=== PATIENT | male | born 1965 | race Caucasian/White ===

== ENCOUNTER 2017-07-28 23:36 | Emergency (ER) | payer MEDICARE ==
--- NOTE | 2017-07-29 00:05 | ED Physician Documentation ---
PD HPI CHEST PAIN - Stated complaint Stated Complaint: CP/NAUSEA - Chief complaint Chief Complaint: Cardiac - History obtained from History obtained from: Patient, Family - History of Present Illness Timing - onset: How many hours ago (12) Timing - onset during: Rest Timing - duration: Hours (12) Timing - details: Gradual onset Pain level max: 8 Pain level now: 8 Quality: Pressure, Aching, Dull, Pain Location: Epigastric Radiation: Other (chest) Improved by: Nothing Worsened by: Eating Associated symptoms: No: Shortness of air, Diaphoresis, Nausea, Vomiting, Feeling faint / dizzy, General Weakness, Palpitations, Cough Similar symptoms before: Has not had sx before Recently seen: Not recently seen - Additional information Additional information: Patient states he has had constant abdominal pain for the last 12 hours, worse after eating tonight. Review of Systems Ten Systems: 10 systems reviewed and negative Constitutional: denies: Fever, Chills Ears: denies: Ear pain Nose: denies: Rhinorrhea / runny nose, Congestion Throat: denies: Sore throat Respiratory: denies: Cough GI: reports: Nausea. denies: Vomiting Skin: denies: Rash Musculoskeletal: denies: Neck pain, Back pain PD PAST MEDICAL HISTORY - Past Medical History Past Medical History: Yes Musculoskeletal: Chronic back pain - Past Surgical History Past Surgical History: No - Present Medications Home Medications: Ambulatory Orders Medication Instructions Recorded Confirmed HYDROcod/ACETAM 5/325 [[place] 5/325] 1 tab PO Q6HR PRN 07/29/17 07/29/17 Oxycodone HCl/Acetaminophen 1 - 2 each PO Q6H PRN #10 tablet 07/29/17 [Percocet 5-325 mg Tablet] - Allergies Allergies/Adverse Reactions: Allergies Allergy/AdvReac Type Severity Reaction Status Date / Time No Known Drug Allergies Allergy Verified 07/29/17 00:38 - Living Situation Living Situation: reports: With family Living Arrangement: reports: At home - Social History Does the pt smoke?: No Does the pt have substance abuse?: No PD ED PE NORMAL - Vitals Vital signs reviewed: Yes - General General: Alert and oriented X 3, No acute distress, Well developed/nourished - HEENT HEENT: PERRL, Moist mucous membranes - Neck Neck: Supple, no meningeal sign - Cardiac Cardiac: RRR, Strong equal pulses - Respiratory Respiratory: No respiratory distress, Clear bilaterally - Abdomen Abdomen: Soft, Non distended, Other (TTP epigastric without peritoneal signs.) - Back Back: No CVA TTP, No spinal TTP - Derm Derm: Warm and dry - Extremities Extremities: No edema, No calf tenderness / cord - Neuro Neuro: Alert and oriented X 3 - Psych Psych: Normal mood, Normal affect Results - Vitals Vitals: Vital Signs - 24 hr 07/28/17 07/29/17 07/29/17 23:40 00:41 01:48 Temperature 36.3 C L 36.5 C 36.9 C Heart Rate 74 79 122 H Respiratory 18 15 18 Rate Blood Pressure 129/74 147/87 H 109/89 H O2 Saturation 100 100 97 07/29/17 03:11 Temperature Heart Rate 123 H Respiratory 19 Rate Blood Pressure 121/44 L O2 Saturation 97 Oxygen O2 Source Room air - EKG (time done) 2352 Rate: Rate (enter#) (77) Rhythm: NSR [place]: Normal Intervals: Normal IA QRS: Normal Ischemia: Normal ST segments 0331 Rate: Rate (enter#) (120) Rhythm: Sinus tachycardia [place]: Normal Intervals: Normal IA QRS: Normal Ischemia: Normal ST segments - Labs Labs: Laboratory Tests 07/29/17 07/29/17 07/29/17 00:33 00:33 00:33 WBC 17.5 H RBC 4.86 Hgb 14.7 Hct 44.3 MCV 91.2 MCH 30.3 MCHC 33.3 RDW 13.3 Plt Count 299 MPV 7.0 L Neut # 15.4 H Lymph # 1.6 [place] # 0.4 Eos # 0.0 Baso # 0.1 Absolute Nucleated RBC 0.00 Nucleated RBCs 0.0 Sodium 140 Potassium 4.3 Chloride 99 L Carbon Dioxide 25 Anion Gap 16.0 H BUN 9 Creatinine 1.0 Estimated GFR (MDRD) 79 L Glucose 143 H Calcium 9.9 Total Bilirubin 0.6 AST 35 ALT 32 Alkaline Phosphatase 84 Troponin I < 0.04 Total Protein 8.7 H Albumin 4.7 Globulin 4.0 Albumin/Globulin Ratio 1.2 Lipase 21 L - Rads (name of study) RUQ US Radiology: Prelim report reviewed, EMP read contemporaneously, See rad report ( No cholelithiasis, cholecystitis, or biliary dilation. At least moderate hepatic steatosis. Mild hepatomegaly. ) CT abd/pelvis Radiology: Prelim report reviewed, EMP read contemporaneously, See rad report ( No acute abdominal or pelvic abnormality. ) PD MEDICAL DECISION MAKING - ED course Complexity details: reviewed results, re-evaluated patient, considered differential, d/w patient, d/w family ED course: Patient is a 51-year-old male who presents to the emergency department with epigastric abdominal pain for approximately 12 hours.No acute findings on ultrasound or CT scan to explain his symptoms. He did develop tachycardia in the emergency department that coincided with the administration of IV Phenergan. No evidence of aortic dissection or pulmonary embolus clinically. Patient is very well-appearing, nontoxic. Afebrile. No evidence of acute coronary syndrome. Patient and family counseled regarding signs and symptoms for which I believe and urgent re-evaluation would be necessary. Patient with good understanding of and agreement to plan and is comfortable going home at this time We did discuss a repeat d-dimer and troponin, but given his length of symptoms and the tachycardia that coincided with the administration of IV Phenergan, will hold this at this time. They will recheck his pulse rate in 6-8 hours to make sure it has returned to normal. He has currently no pain and feels normal. Departure - Departure Disposition: 01 Home, Self Care Clinical Impression: Tachycardia Abdominal pain Qualifiers: Abdominal location: epigastric Qualified Code(s): R10.13 - Epigastric pain Condition: Good Instructions: ED Abdominal Pain Unkn Cause Follow-Up: Steve William MD [Primary Care Provider] - Within 3 Days Prescriptions: Oxycodone HCl/Acetaminophen [Percocet 5-325 mg Tablet] 1 - 2 each PO Q6H PRN # 10 tablet PRN Reason: pain Comments: The cause of your symptoms is unclear tonight. Return if you worsen. Your heart rate should return to normal as the phenergan wears off in 6-8 hours. If it remains elevated, return for evaluation. Do not drink alcohol or drive while on narcotic pain medicine. Note that many narcotic pain relievers also contain tylenol/acetaminophen. Please ensure that your total dose of acetaminophen from all sources does not exceed 3 grams (3000mg) per day. You may constipated on this medication, take a stool softener such as "Colace" twice a day while you are on it. Also recommend a [id number]-gih-scmmdhg laxative such as senna or MiraLAX any day that you do not have a bowel movement. If you received narcotic pain medication in the emergency department, do not drive or operate machinery for the next 24 hours.
[2017-07-29] MEDS ORDERED: LIDOCAINE VISCOUS 2% 15 ML UDC MM STA (00:33)
[2017-07-29] MEDS ORDERED: SUCRALFATE 1 GM/10 ML UDC PO STA (00:33)
[2017-07-29] MEDS ORDERED: MAG HYDROX/AL HYDROX/SIMETH 30 ML UDC PO STA (00:33)
[2017-07-29] MEDS ORDERED: FAMOTIDINE 20 MG TABLET PO STA (00:33)
[2017-07-29] MEDS ORDERED: SUCRALFATE 1 GM/10 ML UDC ONE (00:40)
[2017-07-29] MEDS ORDERED: MAG HYDROX/AL HYDROX/SIMETH 30 ML UDC ONE (00:40)
[2017-07-29] MEDS ORDERED: ONDANSETRON ODT 4 MG TABLET ONE (00:40)
[2017-07-29] MEDS ORDERED: LIDOCAINE VISCOUS 2% 15 ML UDC MM ONE (00:40)
[2017-07-29] MEDS ORDERED: FAMOTIDINE 20 MG TABLET ONE (00:40)
[2017-07-29 00:43] LABS: BASOPHILS # (AUTO) 0.1 10^3/uL (0.0-0.1); BASOPHILS % (AUTO) 0.7 %; HCT - HEMATOCRIT 44.3 % (42.0-52.0); HGB - HEMOGLOBIN 14.7 g/dL (14.0-18.0); LYMPHOCYTES # (AUTO) 1.6 10^3/uL (1.5-3.5); LYMPHOCYTES % (AUTO) 9.2 %; MEAN CORPUSCULAR HEMOGLOBIN 30.3 pg (27.0-31.0); MEAN CORPUSCULAR HGB CONC 33.3 g/dL (32.0-36.0); MEAN CORPUSCULAR VOLUME 91.2 fL (80.0-94.0); MONOCYTES # (AUTO) 0.4 10^3/uL (0.0-1.0); MONOCYTES % (AUTO) 2.2 %; NEUTROPHILS # (AUTO) 15.4 10^3/uL (1.5-6.6); NEUTROPHILS % (AUTO) 87.9 %; RED BLOOD COUNT 4.86 10^6/uL (4.70-6.10); RED CELL DISTRIBUTION WIDTH 13.3 % (12.0-15.0); UNCORRECTED WHITE BLOOD COUNT 17.5 x10^3/uL; WHITE BLOOD COUNT 17.5 x10^3/uL (4.8-10.8)
[2017-07-29 00:51] LABS: ALBUMIN/GLOBULIN RATIO 1.2 (1.0-2.2); BILIRUBIN,TOTAL 0.6 mg/dL (0.2-1.0); CALCIUM 9.9 mg/dL (8.5-10.3); POTASSIUM 4.3 mmol/L (3.5-5.0); TOTAL PROTEIN 8.7 g/dL (6.7-8.2)
[2017-07-29] MEDS ORDERED: HYDROmorphone 1 MG/ML SYRINGE IVP STA ×2 (01:03→03:31)
[2017-07-29] MEDS ORDERED: PROMETHAZINE INJ 25 MG in SODIUM CHLORIDE 0.9% 50 ML IV STA (01:03)
[2017-07-29] MEDS ORDERED: SODIUM CHLORIDE 0.9% 1,000 ML IV ONE ×2 (01:03)
[2017-07-29] MEDS ORDERED: HYDROmorphone 1 MG/ML SYRINGE ONE ×2 (01:08→03:41)
[2017-07-29] MEDS ORDERED: PROMETHAZINE 25 MG/1 ML VIAL ONE (01:08)
--- NOTE | 2017-07-29 01:17 | XRAY Preliminary Report ---
Exam: XR Chest 1 View IMPRESSION: Normal single view chest. [facility] SITE ID: [id number]
--- NOTE | 2017-07-29 01:19 | XRAY Report ---
EXAM: CHEST RADIOGRAPHY EXAM DATE: 07/29/2017 12:59 AM. CLINICAL HISTORY: Chest pain. COMPARISON: None. TECHNIQUE: 1 view. FINDINGS: Lungs/Pleura: No focal opacities evident. No pleural effusion. No pneumothorax. Mediastinum: Within exam limitations, cardiomediastinal contour is normal. Other: None. IMPRESSION: Normal single view chest. [facility] Referring Provider Line: [phone] SITE ID: [id number]
[2017-07-29] MEDS ORDERED: IOPAMIDOL-300 100 ML VIAL ONE (02:46)
[2017-07-29] MEDS ORDERED: IOPAMIDOL-300 100 ML VIAL IVP ONE (03:13)
[2017-07-29 03:15] VITALS: BP 121/44
--- NOTE | 2017-07-29 03:34 | Ultrasound Preliminary Report ---
Exam: US Abdomen Limited IMPRESSION: 1. No cholelithiasis, cholecystitis, or biliary dilation. 2. At least moderate hepatic steatosis. Mild hepatomegaly. [facility] SITE ID: [id number]
--- NOTE | 2017-07-29 03:37 | Ultrasound Report ---
EXAM: ABDOMEN ULTRASOUND LIMITED, RUQ EXAM DATE: 07/29/2017 02:25 AM. CLINICAL HISTORY: Right upper quadrant abdominal pain. COMPARISON: None. TECHNIQUE: Real-time scanning was performed with static images obtained. FINDINGS: Liver: Moderate increased echogenicity. No suspicious focal lesion. Liver measures 17.8 cm in length. Portal Vein: Patent with hepatopetal flow. Gallbladder: No stones, wall thickening, or sonographic Wagner's sign. Biliary System: CBD measures 2.8 mm. No intrahepatic or extrahepatic ductal dilatation. Pancreas: Obscured by overlying structures. Right Kidney: There is a small peripelvic cyst within the right mid kidney measuring 13 mm. Right kid satish measures 10.2 cm in length. Other: None. IMPRESSION: 1. No cholelithiasis, cholecystitis, or biliary dilation. 2. At least moderate hepatic steatosis. Mild hepatomegaly. [facility] Referring Provider Line: [phone] SITE ID: [id number]
--- NOTE | 2017-07-29 03:38 | CT Preliminary Report ---
Exam: CT Abdomen/Pelvis W/ IMPRESSION: No acute abdominal or pelvic abnormality. [facility] SITE ID: [id number]
--- NOTE | 2017-07-29 03:41 | CT Report ---
EXAM: CT ABDOMEN AND PELVIS EXAM DATE: 07/29/2017 03:20 AM. CLINICAL HISTORY: Abdominal pain and vomiting. Lower chest pain. Pain since this afternoon. Nausea an d vomiting. COMPARISONS: None. TECHNIQUE: Routine helical CT imaging was performed through the abdomen and pelvis. IV contrast: 100 cc Isovue-300. Enteric contrast: No. Reconstructions: Coronal and sagittal. In accordance with CT protocol optimization, one or more of the following dose reduction techniques w ere utilized for this exam: automated exposure control, adjustment of mA and/or KV based on patient s ize, or use of iterative reconstructive technique. FINDINGS: ABDOMEN: Liver: Moderate hepatic steatosis. Stomach/Distal Esophagus: No significant abnormality. Gallbladder: No significant abnormality. Bile Ducts: No significant abnormality. Pancreas: No significant abnormality. Spleen: No significant abnormality. Kidneys: No solid appearing lesion. No hydronephrosis. Adrenals: No significant abnormality. Bowel: No obstruction. Average fecal residual. Appendix: Partially visualized portions appear normal. Lymph Nodes: No pathologically enlarged nodes. Vasculature: Normal caliber aorta. Fluid: No significant free fluid. Abdominal Wall: No significant abnormality. Other: No significant abnormality. PELVIS: Prostate and Seminal Vesicles: No significant abnormality. Bladder: No significant abnormality. Lymph Nodes: No pathologically enlarged nodes. Fluid: No significant free fluid. Other: None. BONES: No suspicious bony lesions. LOWER CHEST: No significant consolidation or effusion. IMPRESSION: No acute abdominal or pelvic abnormality. [facility] Referring Provider Line: [phone] SITE ID: [id number]
== END 2017-07-29 04:13 | disposition home or self-care (01) ==
LOC: ED 23:36
DX: R00.0 Tachycardia, unspecified (principal); R10.13 Epigastric pain
CPT/HCPCS: 36415; 71010; 74177; 76705; 80053; 83690; 84484; 85025; 93005; 96374; 96375; 96376; 99284; A9270; J1170; J7040; Q9967; 85379

== ENCOUNTER 2021-08-03 10:58 | Outpatient (CLI) | payer MEDICARE | END 2021-08-03 10:59 | disposition E | LOC: EMS 10:58 ==